=== PATIENT | female | born 1945 | race American Indian/Alaskan Native ===

== ENCOUNTER 2021-11-23 11:35 | Emergency (ER) | payer MEDICARE ==
--- NOTE | 2021-11-23 11:45 | Emergency Department Report ---
ED General Adult HPI - General Stated complaint: CARDIAC ARREST Time Seen by Provider: 11/23/21 11:40 - History of Present Illness Initial comments: Patient presents to the emergency department via EMS receiving for chest compressions with a nondependent airway in place. Per EMS the family states they last noticed the patient well at 1:30 AM. Patient has a history of what was described as bone cancer and questionable esophageal cancer. Family was in the process of possibly making the patient on hospice patient. EMS states on arrival the patient was asystole and they placed pads on the patient which advised shock. Patient state asystole in route worse by the resuscitation. The patient received 4 units of epi in route. Chest compressions were done for 34 minutes as well as other ACLS protocol from the time of arrival to the patient's home to the ED -: unknown Consistency: constant Improves with: none Worsens with: none Associated Symptoms: denies other symptoms Treatments Prior to Arrival: none ED Review of Systems ROS: Stated complaint: CARDIAC ARREST Other details as noted in HPI Comment: Unobtainable due to pts medical conditions ED Physical Exam - General General appearance: other (Patient is pulseless with airway in place) - Head Head exam: Present: atraumatic - Eye Eye exam: Absent: scleral icterus, conjunctival injection - ENT ENT exam: Present: mucous membranes dry - Respiratory Respiratory exam: Present: other (Breath sounds with bagging bilaterally; Yimi airway in place) - Cardiovascular Cardiovascular Exam: Present: other (Asystole) - GI/Abdominal GI/Abdominal exam: Present: soft. Absent: distended - Neurological Exam Neurological exam: Present: other (GCS 3 T) - Psychiatric Psychiatric exam: Present: other (Unable to assess due to the patient's condition) - Skin Skin exam: Present: dry, other (Flaky) ED Medical Decision Making - Medical Decision Making ACLS protocol follow-up Bedside ultrasound shows no cardiac activity Time of 11:37 AM Critical care attestation.: If time is entered above; I have spent that time in minutes in the direct care of this critically ill patient, excluding procedure time. ED Disposition Clinical Impression: Cardiac arrest Disposition: 20 Is pt being admited?: No Does the pt Need Aspirin: No Condition: Stable
== END 2021-11-26 07:21 ==
LOC: ED 11:35
DX: I46.9 Cardiac arrest, cause unspecified (principal)
CPT/HCPCS: 92950; 99285